=== PATIENT | female | born 1985 | race Two or more races ===

== ENCOUNTER → 2025-01-17 | Outpatient (CLI) | payer OTHER, SELFPAY ==
[2025-01-17 14:06] LABS: Creatine Kinase 34 U/L (34-171)
[2025-01-23 07:06] LABS: Aldolase* 4.3 U/L (< OR = 8.1); Scl-70 Antibody* <1.0 NEG AI (<1.0 NEGATIVE)
== END | disposition home or self-care (01) ==
LOC: COPL 13:17
PROVIDERS: PCP Nurse Practitioner; Referring Provider Nurse Practitioner; Visit Provider Nurse Practitioner
DX: R76.8 Other specified abnormal immunological findings in serum (principal)
CPT/HCPCS: 36415; 82085; 82550; 86235

== ENCOUNTER → 2025-02-02 | Outpatient (CLI) | payer OTHER, MEDICAID, SELFPAY ==
--- NOTE | 2025-02-02 09:52 | XR_ITS ---
Examination: Sacrococcyx 3 views Technique: AP inclined AP lateral sigmoid are 6 3 views Exam date and time: February 02, 2025 0955 hrs. Indications: Sacral pain and stiffness 7 months Findings: Moderate bilateral sacroiliitis Symmetrical sacral foramina Intrauterine device upper right pelvis Satisfactory alignment sacrococcygeal segments lateral view but no fracture Separation between the first and second coccygeal segments, 6 mm, clinical correlation advised Impression: Moderate bilateral sacroiliitis
== END | disposition home or self-care (01) ==
PROVIDERS: PCP Family Medicine; Referring Provider Nurse Practitioner; Visit Provider Nurse Practitioner
DX: M46.1 Sacroiliitis, not elsewhere classified (principal)
CPT/HCPCS: 72220

== ENCOUNTER → 2025-07-28 | Outpatient (CLI) | payer OTHER, MEDICAID, SELFPAY ==
[2025-07-28 13:24] LABS: Sed Rate (ESR) 8 mm/hr (0-20)
[2025-07-31 07:29] LABS: HLA-B27 Antigen* NEGATIVE (NEGATIVE)
== END | disposition home or self-care (01) ==
LOC: COPL 11:34
PROVIDERS: PCP Family Medicine; Referring Provider Nurse Practitioner; Visit Provider Nurse Practitioner
DX: I73.01 Raynaud's syndrome with gangrene (principal); M47.816 Spondylosis without myelopathy or radiculopathy, lumbar region; M46.1 Sacroiliitis, not elsewhere classified; M41.80 Other forms of scoliosis, site unspecified
CPT/HCPCS: 36415; 85652; 86812

== ENCOUNTER → 2025-10-11 | Outpatient (CLI) | payer OTHER, SELFPAY ==
--- NOTE | 2025-10-11 09:00 | XR_ITS ---
Examination: Screening digital mammography, bilateral Computer aided detection 3-D breast Tomosynthesis, bilateral Date and time of exam: October 11, 2025, 0914 hours Indication: Screening Technique: Nonmagnified MLO, CC views of the breasts to been obtained, reconstructed from 3-D Tomosynthesis images. R2 computer aided detection program utilized for evaluation of suspicious masses and/or abnormal calcifications. 3-D Tomosynthesis images obtained. Findings: The breasts are heterogeneously dense, which may obscure small masses Benign calcifications No interval suspicious masses Impression: BI-RADS category II: Benign Findings. Recommend 1 year follow-up mammogram.
== END | disposition home or self-care (01) ==
LOC: CDIM 08:55
PROVIDERS: Referring Provider Obstetrics & Gynecology; Visit Provider Obstetrics & Gynecology
DX: Z12.31 Encounter for screening mammogram for malignant neoplasm of breast (principal); R92.323 Mammographic fibroglandular density, bilateral breasts; R92.1 Mammographic calcification found on diagnostic imaging of breast
CPT/HCPCS: 77063; 77067